=== PATIENT | male | born 1970 | race Caucasian/White ===

== ENCOUNTER 2018-08-09 18:50 | Emergency (ER) | payer OTHER ==
--- NOTE | 2018-08-09 19:21 | EDPHY ---
H & P Stated Complaint: Common Ulc Colitis flairup, tachy, bleeding. Time Seen by Provider: 08/09/18 19:16 HPI/ROS: CHIEF COMPLAINT: Ulcerative colitis flare HISTORY OF PRESENT ILLNESS: The patient is a 48-year-old man with a history of ulcerative colitis who is followed at [facility] by Dr. Hernandez. He receives 20 mg prednisone daily as well as monthly entyvio injections. He states that since his last injection 2 weeks ago his symptoms seem to be getting worse. He has had increasing episodes of bloody diarrhea. He is having about 8 episodes per day. No nausea vomiting. No abdominal pain. He also states that his eyes are puffy and that he occasionally has palpitations. He presented to his primary care doctor today and a heart rate of 130 so they recommended he come to the ER. He has not had a fever. No history of abdominal surgery. No recent antibiotics. Here in the room his heart rate is in 80s and 90s. Severity: Moderate Modifying factors: None REVIEW OF SYSTEMS: Constitutional: denies: chills, fever, recent illness, recent injury EENTM: denies: blurred vision, double vision, nose congestion Respiratory: denies: cough, shortness of breath Cardiac: denies: chest pain, irregular heart rate, lightheadedness, palpitations Gastrointestinal/Abdominal: See HPI Genitourinary: denies: dysuria, frequency, hematuria, pain Musculoskeletal: denies: joint pain, muscle pain Skin: denies: lesions, rash, jaundice, bruising Neurological: denies: headache, numbness, paresthesia, tingling, dizziness, weakness Hematologic/Lymphatic: denies: blood clots, easy bleeding, easy bruising Immunologic/allergic: denies: HIV/AIDS, transplant 10 systems reviewed and negative except as noted EXAM: GENERAL: Well-appearing, well-nourished and in no acute distress. HEAD: Atraumatic, normocephalic. EYES: Pupils equal round and reactive to light, extraocular movements intact, sclera anicteric, conjunctiva are normal. ENT: TMs normal, nares patent, oropharynx clear without exudates. Moist mucous membranes. NECK: Normal range of motion, supple without lymphadenopathy or JVD. LUNGS: Breath sounds clear to auscultation bilaterally and equal. No wheezes rales or rhonchi. HEART: Regular rate and rhythm without murmurs, rubs or gallops. ABDOMEN: Soft, nontender, normoactive bowel sounds. No guarding, no rebound. No masses appreciated. Red Blood streaked stool BACK: No CVA tenderness, no spinal tenderness, step-offs or deformities EXTREMITIES: Normal range of motion, no pitting or edema. No clubbing or cyanosis. NEUROLOGICAL: Cranial nerves II through XII grossly intact. Normal speech, normal gait. 5/5 strength, normal movement in all extremities, normal sensation , normal reflexes PSYCH: Normal mood, normal affect. SKIN: Warm, dry, normal turgor, no visible rashes or lesions. Source: Patient - Personal History Current Tetanus/Diphtheria Vaccine: Unsure - Medical/Surgical History Hx Asthma: No Hx Chronic Respiratory Disease: No Hx Diabetes: No Hx Cardiac Disease: No Hx Renal Disease: No Hx Cirrhosis: No Hx Alcoholism: No Hx HIV/AIDS: No Other PMH: Ulcerative Colitis, Linear IGA, - Family History Significant Family History: No pertinent family hx - Social History Smoking Status: Never smoked Alcohol Use: Sober Constitutional: Initial Vital Signs Temperature (C) 36.6 C 08/09/18 18:54 Heart Rate 91 08/09/18 18:54 Respiratory Rate 18 08/09/18 18:54 Blood Pressure 162/108 H 08/09/18 18:54 O2 Sat (%) 96 08/09/18 18:54 O2 Delivery Mode Room Air Allergies/Adverse Reactions: sulfamethoxazole [From Bactrim] Allergy (Verified 08/09/18 18:54) trimethoprim [From Bactrim] Allergy (Verified 08/09/18 18:54) Home Medications: Medication Instructions Recorded predniSONE 40 mg PO DAILY #14 tab 08/09/18 Medical Decision Making - Diagnostics EKG Interpretation: An EKG obtained and was read and documented in trace view. Please see trace view for full reading and report. Sinus rhythm, PVC ED Course/Re-evaluation: The patient's relieved with the lab and EKG results. He has not been tachycardic here on the monitor. He does have some mild pain in his abdomen but no tenderness. I offered further workup including imaging. He declines and states that this is typical for his ulcerative colitis flares. He was more concerned today about the other symptoms such as the tachycardia and mild headache. He declines medication for the headache. He states that it is very minimal. He has not been tachycardic since arriving here. I suggested we increase his prednisone dose but will consult his gastrologist. I spoke with Dr. Silveira who agrees with increasing his prednisone but recommends 40 mg a day and then taper from his primary. Differential Diagnosis: Partial list of the Differential diagnosis considered include but were not limited to; ulcerative colitis, anxiety, tachycardia and although unlikely based on the history and physical exam, I also considered appendicitis, perforation, ischemia, volvulus. I discussed these differential diagnoses and the plan with the patient as well as the usual and expected course. The patient understands that the diagnosis is provisional and that in medicine we are not always correct and that further workup is often warranted. Usual and customary warnings were given. All of the patient's questions were answered. The patient was instructed to return to the emergency department should the symptoms at all worsen or return, otherwise to followup with the physician as we discussed. - Data Points Laboratory Results: Laboratory Results 08/09/18 19:35 08/09/18 19:35 Medications Given: Discontinued Medications Prednisone (Prednisone) 40 mg PO EDNOW ONE Stop: 08/09/18 19:24 Last Admin: 08/09/18 19:28 Dose: 40 mg Departure - Departure Disposition: Home, Routine, Self-Care Clinical Impression: Ulcerative colitis Qualifiers: Ulcerative colitis location: unspecified ulcerative colitis location Digestive disease complication type: unspecified complication Qualified Code(s): K51.919 - Ulcerative colitis, unspecified with unspecified complications Condition: Fair Instructions: Ulcerative Colitis (ED) Referrals: OBEY YANG [Primary Care Provider] - 2-3 days without fail Prescriptions: predniSONE 40 mg PO DAILY #14 tab
[2018-08-09] MEDS ORDERED: predniSONE 20 MG TAB PO ONE (19:23)
--- NOTE | 2018-08-09 19:44 | CPEKG ---
Test Reason : OPEN Blood Pressure : / mmHG Vent. Rate : 088 BPM Atrial Rate : 091 BPM P-R Int : 148 ms QRS Dur : 093 ms QT Int : 373 ms P-R-T Axes : 058 065 026 degrees QTc Int : 452 ms Sinus rhythm Ventricular premature complex Confirmed by Jessy Mcelroy ([id number]) on 08/09/2018 7:44:07 PM Referred By: JESSY MCELROY Confirmed By:Jessy Mcelroy
[2018-08-09 19:59] LABS: PLATELET COUNT 242 10^3/uL (150-400)
[2018-08-09 20:49] VITALS: BP 124/100
== END 2018-08-09 21:00 | disposition home or self-care (01) ==
DX: K51.919 Ulcerative colitis, unspecified with unspecified complications (principal); Z79.899 Other long term (current) drug therapy
CPT/HCPCS: J7512